=== PATIENT | female | born 1975 | race Caucasian/White ===

== ENCOUNTER 2022-08-31 14:17 | Emergency (ER) | payer OTHER ==
[~2022-08-31] VITALS: Ht 165.1 cm; Wt 109.0 kg
[2022-08-31 14:56] VITALS: BP 150/108
== END 2022-08-31 16:48 | disposition left against medical advice (07) ==
LOC: ER 14:17
DX: N93.9 Abnormal uterine and vaginal bleeding, unspecified (principal); F10.129 Alcohol abuse with intoxication, unspecified; Y90.9 Presence of alcohol in blood, level not specified
CPT/HCPCS: 81025; 99283